=== PATIENT | female | born 1970 | race Caucasian/White ===

== ENCOUNTER → 2017-01-04 | Outpatient (CLI) | payer BC ==
--- NOTE | 2017-01-05 16:42 | MR ---
EXAMINATION TYPE: MR stanfordine/reignoine wo con DATE OF EXAM: 01/04/2017 10:50 AM COMPARISON: 02/04/2015 HISTORY: Glendy malformation/ syrinx CONTRAST: Performed utilizing 0 mL intravenous MultiHance gadolinium contrast. TECHNIQUE: Multiplanar multiecho imaging on a 3.0 Justina magnet is performed through the cervical spin e. FINDINGS: There is a tight foramen magnum. The tonsils are below the level of the foramen magnum by 2 .1 cm. Normal is less than 0.5 cm right tonsillar containing appears to be present. Medullary kinking is not identified. There is a syrinx present which is well visualized of C3-T3. The greatest width's posterior to the C5-C6 level which is approximately 0.32 cm. There is a similar measurement on the c omparison examination. There is a disc bulge at C6-7 with moderate anterior thecal sac compression. This is stable from prio r study. Cord contact may be present. Mild disc bulge is present C5-6 with anterior thecal sac compre ssion. This may have some cord contact. No AP spinal canal stenosis is present. This is unchanged fro m prior study. Minimal disc bulge is present C3-4 and the right paracentral region without cord conta ct. No spinal canal stenosis present. Tiny hyperdensity within the left lobe thyroid is stable. IMPRESSIONS: 1. Chiari malformation with tonsillar caking and sent 2 cm below the foramen magnum. 2. Cord syrinx appears stable from 02/04/2015. 3. Disc bulging greatest at C6-7 but also present at C3-4 and C5-6, stable from prior study. EXAMINATION TYPE: MR kaela/amanda wo con DATE OF EXAM: 01/04/2017 10:50 AM COMPARISON: NONE HISTORY: Glendy malformation/ syrinx CONTRAST: Performed utilizing 0 mL intravenous MultiHance gadolinium contrast. TECHNIQUE: Multiplanar, multiecho imaging on a 3.0 Justina magnet is performed through the thoracic spi ne. Cord syrinx within the upper thoracic spine as discussed during the cervical spine dictation. Syrinx extends to the T4 level The mid and lower thoracic spinal cord maintains normal signal without additional areas suspicious fo r syrinx. T9-10: There is some left paracentral thecal sac compression from disc bulge. No spinal canal stenosi s is evident. No cord contact is evident. This is stable from prior study. Vertebral body alignment is normal. Vertebral body heights are preserved. Disc heights are preserved. Disc hydration levels are preserved. No spinal canal stenosis is evident. IMPRESSIONS: 1. Stable cord syrinx. 2. Mild left paracentral disc bulge T9-T10, stable from prior study.
== END | disposition home or self-care (01) ==
LOC: RADMRIMAIN 09:55
PROVIDERS: ATTEND Internal Medicine
DX: M50.223 Other cervical disc displacement at C6-C7 level (principal); M51.24 Other intervertebral disc displacement, thoracic region
CPT/HCPCS: 72141; 72146

== ENCOUNTER → 2019-01-02 | Outpatient (CLI) | payer BC ==
--- NOTE | 2019-01-02 08:50 | MR ---
EXAMINATION TYPE: MR cspine/tspine wo con DATE OF EXAM: 01/02/2019 COMPARISON: Prior MRI cervical and thoracic spine January 04, 2017. HISTORY: Neck and back pain, stiffness, hx chiari malformation w/syrinx TECHNIQUE: Multiplanar, multisequence imaging of cervical and thoracic spine are performed without co ntrast FINDINGS: C-SPINE: FINDINGS: Sagittal images of the cervical spine redemonstrate Chiari-type I malformation with cerebel lar tonsils extending to superior to mid C3 level roughly 2.2 cm below foramen magnum sagittal image 7. The cervical and upper thoracic spinal cord redemonstrates syrinx beginning at mid C5 level exten ding to inferior T1 level not significantly changed from prior study with slight cord expansion. Bi tebral alignment is stable and straightened. There is persistent mild disc space narrowing C6-C7 lev el. The vertebral body and intravertebral disk heights otherwise are normal. Small posterior disc her niations mildly effacing anterior thecal sac at C3-C4, C5-C6, and C6-C7 levels remain present on sagi ttal images. The bone marrow signal intensity remains within normal limits. Axial images at C2-C3 level remain within normal limits. Axial images at C3-C4 level redemonstrates tiny central disc protrusion mildly effacing anterior thec al sac, bilateral neural foramina are patent. Axial images at C4-C5 level remain within normal limits. Axial images at C5-C6 level shows central disc protrusion effacing anterior thecal sac, bilateral young ral foramina are patent on axial image 27. Axial images at C6-C7 level shows central disc protrusion effacing anterior thecal sac with some inde nting of ventral surface of spinal cord on axial image 20, bilateral neural foramina are patent. No s ignificant change from prior. Axial images at C7-T1 level show syrinx otherwise are felt within normal limits. Stable 5 mm left thyroid T2 hyperintense nodule axial image 6. IMPRESSION: Stable Chiari type I malformation and stable mid cervical syrinx extending to upper thora cic spine. Stable multilevel posterior disc herniations largest noted at C6-C7 level. T-SPINE: Spinal cord redemonstrates additional small syrinx or central canal prominence superior T3 through i nferior T4 level sagittal image 7 unchanged from prior. There is likely contiguous extension through the T2 vertebra no syrinx is less well seen at T2 level. No significant change from prior. Remainder spinal cord shows stable caliber without abnormal signal. Vertebral body heights and alignment remain satisfactory. Tiny posterior disc herniations mildly effacing anterior thecal sac are seen at T5-T6 and T6-C7 level on sagittal image 6 as well as at T8-T9 and T9-T10 level on sagittal image 5. These a re slightly more prominent from prior MRI. There is redemonstration of hemangioma involving T7 verteb ra sagittal image 5 of the left of midline. Review of the axial images confirms contiguous extension of syrinx from the mid cervical spine up to the inferior T4 vertebra. There is redemonstration of multilevel tiny disc herniations in the mid to lower thoracic spine more prominent. No additional disc herniations are evident on axial images. IMPRESSION: Stable syrinx extends to inferior T4 level. Multilevel posterior disc herniations mid to lower thoracic spine as detailed above show slight interval progression from 2017 MRI
== END ==
LOC: RADMRIMAIN 07:03
PROVIDERS: ATTEND Internal Medicine
DX: M50.223 Other cervical disc displacement at C6-C7 level (principal); M51.24 Other intervertebral disc displacement, thoracic region; Q07.00 Arnold-Chiari syndrome without spina bifida or hydrocephalus
CPT/HCPCS: 72141; 72146

== ENCOUNTER 2019-04-04 10:35 | Emergency (ER) | payer BC ==
[2019-04-04 10:39] VITALS: RESP 18
[2019-04-04] MEDS ORDERED: SODIUM CHLORIDE 0.9% 1,000 ML IV STA (11:01)
[2019-04-04] MEDS ORDERED: diphenhydrAMINE 50 MG/ML 1 ML VIAL IVP STA (11:01)
[2019-04-04] MEDS ORDERED: ONDANSETRON 4 MG/2 ML VIAL IVP STA ×2 (11:01→14:44)
--- NOTE | 2019-04-04 11:03 | ED ---
Dizziness HPI - General Chief Complaint: Dizziness Stated Complaint: dizziness Time Seen by Provider: 04/04/19 10:49 Source: patient, RN notes reviewed, old records reviewed Mode of arrival: ambulatory Limitations: no limitations - History of Present Illness Initial Comments: This is a 49-year-old female the ER for evaluation, patient resents today for evaluation regarding vertiginous type symptoms symptoms starting today. No headache. Patient does have significant history of CAD malformation with surgical evaluation. Patient scheduled for surgery this year. Patient has no recent travel history sick contacts no traumas. She is nauseous. Symptoms all began states positional her eyes don't feel like they're appropriate. Patient denies any recent change in medications drugs or alcohol MD Complaint: dizziness, lightheadedness -: hour(s) Timing: gradual onset Description: sense of movement, "room spinning", off-balance, difficulty walking History of Same: No History of Trauma: No Severity: mild Improves With: nothing Worsens With: nothing Associated Symptoms: ataxia, weakness - Related Data Home Medications Medication Instructions Recorded Confirmed Carisoprodol [Soma] 350 mg PO BID 04/12/16 04/04/19 Levothyroxine Sodium [Synthroid] 50 mcg PO DAILY 04/12/16 04/04/19 Cholecalciferol [Vitamin D3 (25 1,000 unit PO DAILY 04/04/19 04/04/19 Mcg = 1000 Iu)] HYDROcodone/APAP 7.5-325MG [[place] 1 tab PO BID PRN 04/04/19 04/04/19 7.5-325] Ubidecarenone [Co Q-10] 100 mg PO DAILY 04/04/19 04/04/19 Allergies Allergy/AdvReac Type Severity Reaction Status Date / Time No Known Allergies Allergy Verified 04/04/19 10:44 Review of Systems ROS Statement: Those systems with pertinent positive or pertinent negative responses have been documented in the HPI. ROS Other: All systems not noted in ROS Statement are negative. Past Medical History Past Medical History: Thyroid Disorder Additional Past Medical History / Comment(s): Chiari malformation History of Any Multi-Drug Resistant Organisms: None Reported Past Surgical History: Orthopedic Surgery, Tonsillectomy Additional Past Surgical History / Comment(s): left elbow fx, arthroscopy left shoulder Past Anesthesia/Blood Transfusion Reactions: No Reported Reaction Past Psychological History: No Psychological Hx Reported Smoking Status: Former smoker Past Alcohol Use History: Occasional Past Drug Use History: None Reported - Past Family History Mother Family Medical History: No Reported History General Exam Limitations: no limitations General appearance: alert, in no apparent distress Head exam: Present: atraumatic, normocephalic, normal inspection Eye exam: Present: normal appearance, PERRL, EOMI. Absent: scleral icterus, conjunctival injection, periorbital swelling ENT exam: Present: normal exam, mucous membranes moist Neck exam: Present: normal inspection. Absent: tenderness, meningismus, lymphadenopathy Respiratory exam: Present: normal lung sounds bilaterally. Absent: respiratory distress, wheezes, rales, rhonchi, stridor Cardiovascular Exam: Present: regular rate, normal rhythm, normal heart sounds. Absent: systolic murmur, diastolic murmur, rubs, gallop, clicks GI/Abdominal exam: Present: soft, normal bowel sounds. Absent: distended, tenderness, guarding, rebound, rigid Extremities exam: Present: normal inspection, full ROM, normal capillary refill. Absent: tenderness, pedal edema, joint swelling, calf tenderness Back exam: Present: normal inspection Neurological exam: Present: alert, oriented X3, CN II-XII intact Psychiatric exam: Present: normal affect, normal mood Skin exam: Present: warm, dry, intact, normal color. Absent: rash Course Vital Signs 04/04/19 04/04/19 04/04/19 10:37 14:00 15:00 Temperature 98.2 F 98.0 F Pulse Rate 91 82 80 Respiratory 18 18 18 Rate Blood Pressure 115/64 103/63 105/63 O2 Sat by Pulse 98 98 97 Oximetry - Reevaluation(s) Reevaluation #1: 04/04/19 15:34 Medical records reviewed Reevaluation #2: 04/04/19 15:34 All to 4 times a day and made to reach patient's neurosurgeon Dr. Kerwin Bush, these are unsuccessful. No return call is an hour Reevaluation #3: 04/04/19 15:34 Patient will be transferred to [facility] for worsening of symptoms EKG Findings - EKG Comments: EKG Findings:: EKG shows normal sinus rhythm rate of 79, RI 166, QRS 110, QTc 495 Medical Decision Making - Medical Decision Making 49 female the ER for evaluation presents today for evaluation regarding vertigo symptoms are unresolved persistent ataxia. Patient be transferred for neurology evaluation - Lab Data Result diagrams: 04/04/19 11:23 04/04/19 11:23 Lab Results 04/04/19 04/04/19 04/04/19 Range/Units 11:23 11:23 11:23 WBC 7.2 (3.8-10.6) k/uL RBC 4.16 (3.80-5.40) m/uL Hgb 12.5 (11.4-16.0) gm/dL Hct 37.6 (34.0-46.0) % MCV 90.2 (80.0-100.0) fL MCH 30.1 (25.0-35.0) pg MCHC 33.4 (31.0-37.0) g/dL RDW 13.9 (11.5-15.5) % Plt Count 222 (150-450) k/uL Neutrophils % 81 % Lymphocytes % 12 % Monocytes % 4 % Eosinophils % 2 % Basophils % 0 % Neutrophils # 5.8 (1.3-7.7) k/uL Lymphocytes # 0.8 L (1.0-4.8) k/uL Monocytes # 0.3 (0-1.0) k/uL Eosinophils # 0.1 (0-0.7) k/uL Basophils # 0.0 (0-0.2) k/uL PT (9.0-12.0) sec INR (<1.2) APTT (22.0-30.0) sec Sodium 138 (137-145) mmol/L Potassium 3.7 (3.5-5.1) mmol/L Chloride 106 (98-107) mmol/L Carbon Dioxide 24 (22-30) mmol/L Anion Gap 8 mmol/L BUN 13 (7-17) mg/dL Creatinine 0.53 (0.52-1.04) mg/dL Est GFR (CKD-EPI)AfAm >90 (>60 ml/min/1.73 sqM) Est GFR (CKD-EPI)NonAf >90 (>60 ml/min/1.73 sqM) Glucose 138 H (74-99) mg/dL Plasma Lactic Acid Rafael 1.4 (0.7-2.0) mmol/L Calcium 8.9 (8.4-10.2) mg/dL Phosphorus 2.6 (2.5-4.5) mg/dL Magnesium 1.8 (1.6-2.3) mg/dL Total Bilirubin 0.4 (0.2-1.3) mg/dL AST 16 (14-36) U/L ALT 24 (9-52) U/L Alkaline Phosphatase 65 (38-126) U/L Creatine Kinase 71 (30-135) U/L Troponin I (0.000-0.034) ng/mL Total Protein 6.6 (6.3-8.2) g/dL Albumin 4.0 (3.5-5.0) g/dL 04/04/19 04/04/19 Range/Units 11:23 11:23 WBC (3.8-10.6) k/uL RBC (3.80-5.40) m/uL Hgb (11.4-16.0) gm/dL Hct (34.0-46.0) % MCV (80.0-100.0) fL MCH (25.0-35.0) pg MCHC (31.0-37.0) g/dL RDW (11.5-15.5) % Plt Count (150-450) k/uL Neutrophils % % Lymphocytes % % Monocytes % % Eosinophils % % Basophils % % Neutrophils # (1.3-7.7) k/uL Lymphocytes # (1.0-4.8) k/uL Monocytes # (0-1.0) k/uL Eosinophils # (0-0.7) k/uL Basophils # (0-0.2) k/uL PT 11.2 (9.0-12.0) sec INR 1.1 (<1.2) APTT 22.5 (22.0-30.0) sec Sodium (137-145) mmol/L Potassium (3.5-5.1) mmol/L Chloride (98-107) mmol/L Carbon Dioxide (22-30) mmol/L Anion Gap mmol/L BUN (7-17) mg/dL Creatinine (0.52-1.04) mg/dL Est GFR (CKD-EPI)AfAm (>60 ml/min/1.73 sqM) Est GFR (CKD-EPI)NonAf (>60 ml/min/1.73 sqM) Glucose (74-99) mg/dL Plasma Lactic Acid Rafael (0.7-2.0) mmol/L Calcium (8.4-10.2) mg/dL Phosphorus (2.5-4.5) mg/dL Magnesium (1.6-2.3) mg/dL Total Bilirubin (0.2-1.3) mg/dL AST (14-36) U/L ALT (9-52) U/L Alkaline Phosphatase (38-126) U/L Creatine Kinase (30-135) U/L Troponin I <0.012 (0.000-0.034) ng/mL Total Protein (6.3-8.2) g/dL Albumin (3.5-5.0) g/dL Disposition Clinical Impression: Vertigo, Ataxia Disposition: OTHER INSTITUTION NOT DEFINED Condition: Fair Is patient prescribed a controlled substance at d/c from ED?: No Referrals: Familia Schultz MD [Primary Care Provider] - 1-2 days - Out of Hospital Transfer - Req. Specs Out of Hospital Transfer - Requested Specifics: Other Emergency Center ([facility]
[2019-04-04 11:38] LABS: Basophils % (A) 0 %; Eosinophils # (A) 0.1 k/uL (0-0.7); Eosinophils % (A) 2 %; HCT 37.6 % (34.0-46.0); HGB 12.5 gm/dL (11.4-16.0); Lymphocytes # (A) 0.8 k/uL (1.0-4.8); Lymphocytes % (A) 12 %; MCH 30.1 pg (25.0-35.0); MCHC 33.4 g/dL (31.0-37.0); MCV 90.2 fL (80.0-100.0); Mean Platelet Volume 8.1; Monocytes # (A) 0.3 k/uL (0-1.0); Monocytes % (A) 4 %; Neutrophils # (A) 5.8 k/uL (1.3-7.7); Neutrophils % (A) 81 %; Platelet Count 222 k/uL (150-450); RBC 4.16 m/uL (3.80-5.40); RDW 13.9 % (11.5-15.5); WBC 7.2 k/uL (3.8-10.6)
[2019-04-04 11:45] LABS: INR 1.1 (<1.2); Partial Thromboplastin Time 22.5 sec (22.0-30.0); Prothrombin Time 11.2 sec (9.0-12.0)
[2019-04-04 11:47] LABS: ALT 24 U/L (9-52); AST 16 U/L (14-36); Alkaline Phosphatase 65 U/L (38-126); Anion Gap 8 mmol/L; Blood Urea Nitrogen 13 mg/dL (7-17); Calcium 8.9 mg/dL (8.4-10.2); Carbon Dioxide 24 mmol/L (22-30); Chloride 106 mmol/L (98-107); Creatine Kinase 71 U/L (30-135); Glucose 138 mg/dL (74-99); Magnesium 1.8 mg/dL (1.6-2.3); Phosphorus 2.6 mg/dL (2.5-4.5); Potassium 3.7 mmol/L (3.5-5.1); Sodium 138 mmol/L (137-145); Total Bilirubin 0.4 mg/dL (0.2-1.3); Total Protein 6.6 g/dL (6.3-8.2)
--- NOTE | 2019-04-04 12:38 | CT ---
EXAMINATION TYPE: CT brain wo con DATE OF EXAM: 04/04/2019 COMPARISON: NONE HISTORY: Dizziness CT DLP: 972.7 mGycm Automated exposure control for dose reduction was used. FINDINGS: Structures are midline. There is no evidence of hydrocephalus. No acute focal lesion, mass effect or midline shift is seen. I do not see evidence of intracranial blood. Visualized portions of the paranasal sinuses and mastoids are clear. The bony calvarium is intact. IMPRESSION: NO ACUTE INTRACRANIAL ABNORMALITY.
[2019-04-04 14:11] VITALS: TEMP 98
--- NOTE | 2019-04-04 14:21 | CT ---
EXAMINATION TYPE: CT angio head neck DATE OF EXAM: 04/04/2019 HISTORY: Dizziness COMPARISON: None. CT DLP: 352.4 mGycm. Automated Exposure Control for Dose Reduction was Utilized. TECHNIQUE: CTA scan of the neck is performed with IV Contrast, patient injected with 50 mL of Isovue 370, axial images are obtained, coronal and sagittal reformatted images are reviewed. Three-D recons tructed images are created on an independent workstation and reviewed. FINDINGS: There are emphysematous changes throughout the lungs. Lungs otherwise clear. There is a mild reversal of the normal cervical lordosis which is replaced by mild kyphosis. There is disc space loss and hypertrophic spondylosis at C5-6 and C6-7. There is mild uncovertebral joint dis ease at these levels. No definite protrusion is seen. There is a normal origin of the great vessels. Both vertebral arteries are codominant. There is no significant calcification at the level of the carotid bulbs. I do not see evidence of a h emodynamically significant stenosis in the proximal carotid arteries. The more distal carotid arterie s on the left are unremarkable. On the right there is artifact in the appearance of occlusion distall y. I believe the computer is mixing and branches of the external carotid into the reconstruction. Exam shows the carotid canal left carotid is of normal caliber. There is some dolichoectasia of the vertebrobasilar system mildly posterior communicating artery is v isualized. The anterior communicating artery is patent. There are 2 anterior cerebral arteries. There is normal arborization of the middle cerebral arteries bilaterally. There is no sizable aneurysm. IMPRESSION: 1. I SEE EVIDENCE OF A HEMODYNAMICALLY SIGNIFICANT STENOSIS IN EITHER CAROTID SYSTEM. 2. NORMAL MRI OF THE [place]. 3. EMPHYSEMATOUS CHANGES WITHIN THE LUNGS. 4. DEGENERATIVE CHANGES WITHIN THE SPINE.
[2019-04-04] MEDS ORDERED: DIAZEPAM 5 MG/ML 2 ML INJ IVP STA (14:55)
[2019-04-04 16:31] VITALS: BP 108/66; PULSE 82
== END 2019-04-04 16:31 | disposition short-term general hospital (02) ==
LOC: EC 10:35
DX: R42 Dizziness and giddiness (principal); R26.2 Difficulty in walking, not elsewhere classified; R27.0 Ataxia, unspecified; R11.0 Nausea; R53.1 Weakness; Q07.00 Arnold-Chiari syndrome without spina bifida or hydrocephalus; E07.9 Disorder of thyroid, unspecified; Z87.891 Personal history of nicotine dependence; Z79.890 Hormone replacement therapy; Z79.899 Other long term (current) drug therapy
CPT/HCPCS: 36415; 93005; 80053; 82550; 83605; 83735; 84100; 84484; 85025; 85610; 85730; 70496; 70450; 70498; 99285; 96374; 96375 ×2; 96376; 96361; J1200; J3360; J2405; Q9967

== ENCOUNTER → 2019-05-13 | Outpatient (CLI) | payer BC ==
--- NOTE | 2019-05-14 13:11 | MR ---
EXAMINATION TYPE: MR brain wo/w con DATE OF EXAM: 05/13/2019 COMPARISON: CT brain April 04, 2019 HISTORY: Chiari syndrome, dizziness, abn gait, cerebellar stroke 6-19 TECHNIQUE: Multiplanar, multisequence images of the brain and brainstem is performed without and with IV contras t, utilizing 7.5 mL intravenous Gadavist . FINDINGS: Diffusion weighted images demonstrate no evidence of a recent infarct or other diffusion ab normality. There is no extra-axial fluid collection or significant white matter signal abnormality. The ventricular system and cisternal spaces are normal in size and appearance. The brain volume is age appropriate. Confirmation of subacute on chronic inferior left cerebellar infarct near axial imag e 6 for reference. Midline structures demonstrate low-lying right-sided cerebellar tonsil sagittal image 11 consistent w ith known Chiari type I malformation causing mass effect on the spinal cord slightly deviated anterio rly and to the left. Left-sided brain herniation is improved after infarct. Post contrast images demonstrate no abnormal enhancement. The dural venous sinuses appear patent. The visualized sinuses are clear and the globes are intact. IMPRESSION: Confirmation of lower left cerebellar subacute on chronic infarct likely accounting for p atient's symptoms of abnormal gait. Chiari type I malformation redemonstrated improved on left side a fter volume loss related to infarct.
--- NOTE | 2019-05-14 13:48 | MR ---
EXAMINATION TYPE: MR cspine/tspine wo con DATE OF EXAM: 05/13/2019 COMPARISON: 01/02/2019 MRI C-spine/T-spine and 01/04/2017. HISTORY: Chiari syndrome, dizziness, abnormal gait TECHNIQUE: Multiplanar, multisequence imaging of the cervical spine and thoracic is performed without intravenous contrast. FINDINGS: The vertebral body heights of the cervical and thoracic spine are maintained. Bone marrow signal is w ithin normal limits other than few T1/T2 hyperintense vertebral body hemangiomas, the largest at T7. 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 This extends from the C5 vertebral level to the T4 vertebral level measuring 11.3 cm in craniocaudal dimension. This measu res up to 3 mm in anterior posterior dimension. This is similar to the prior exam. There appears to be some interval decompression of a Chiari malformation as the cerebellar tonsils ap pear to be located at the level of C3 on the prior exam of 01/02/2019 measuring 2.2 cm from the foramen magnum and currently are seen at the level of C2 extending approximately 1.3 cm from the foramen mag num inferiorly. These are peglike tonsils compatible the patient's known history of Chiari malformati on. There is redemonstration of heterogeneity of the thyroid gland and enlargement with a 5 mm thyroid no dule. C2-C3: Very small central disc osteophyte complex without spinal canal stenosis nor neural foraminal narrowing. C3-C4: There is a very small central disc herniation without spinal canal stenosis nor neural foramin al narrowing. C4-C5: There is a very small posterior central disc osteophyte complex without spinal canal stenosis nor neural foraminal narrowing. C5-C6 there remains a small central disc herniation/protrusion without spinal canal stenosis. Minimal uncovertebral hypertrophy is seen without significant neural foraminal narrowing. C6-C7: There remains a central disc herniation and minimal left uncovertebral hypertrophy creating mi ld spinal canal stenosis without neural foraminal narrowing. T4: Disc desiccation is seen without spinal canal stenosis nor neural foraminal narrowing. T5-T6: The previously seen posterior disc herniation is not well appreciated and there is a left ecce ntric broad-based disc bulge without spinal canal stenosis nor neural foraminal narrowing. T6-T7: Very small left paracentral annular tear. No focal disc herniation as seen on the prior. Left eccentric broad-based disc bulge without spinal canal stenosis nor neural foraminal narrowing. T7-T8: Disc desiccation without spinal canal stenosis nor neural foraminal narrowing. T8-T9: Very tiny left paracentral disc herniation as seen on the prior without spinal canal stenosis nor neural foraminal narrowing. T9-T10: Left eccentric broad-based disc bulge without spinal canal stenosis nor neural foraminal narr owing. T10-T12: Disc desiccation without spinal canal stenosis nor neural foraminal narrowing. There are partially visualized small bilateral layering pleural effusions. IMPRESSION: 1. Continued stability of the long segment syrinx seen from approximately C5-T4 and interval decompre ssion of the degree of cerebellar tonsillar herniation previously measuring 2.2 cm below the foramen magnum and currently measuring only 1.3 cm. Findings are in keeping with the patient's known history of Chiari type I malformation. 2. Mildly advanced degenerative disc disease of the cervical and thoracic spine in comparison to the prior of 01/02/2019 with multiple small disc herniations as detailed above. No spinal canal stenosis th roughout.
== END | disposition home or self-care (01) ==
LOC: RADMRIMAIN 10:25
PROVIDERS: ATTEND Internal Medicine
DX: M50.21 Other cervical disc displacement, high cervical region (principal); M51.24 Other intervertebral disc displacement, thoracic region; M50.30 Other cervical disc degeneration, unspecified cervical region; M51.34 Other intervertebral disc degeneration, thoracic region; I63.9 Cerebral infarction, unspecified; G93.5 Compression of brain
CPT/HCPCS: 70553; 72141; 72146; A9585

== ENCOUNTER → 2019-08-24 | Outpatient (CLI) | payer BC ==
--- NOTE | 2019-08-24 15:03 | MR ---
EXAMINATION TYPE: MR brain wo/w con DATE OF EXAM: 08/24/2019 COMPARISON: MRI brain May 13, 2019 HISTORY: Arnold-Chiari syndrome without spina bifida TECHNIQUE: Multiplanar, multisequence images of the brain and brainstem is performed without and with IV contras t, utilizing 7.5 mL intravenous Gadavist . FINDINGS: Diffusion weighted images demonstrate no evidence of a recent infarct or other diffusion ab normality. There is no worrisome extra-axial fluid collection. The ventricular system and cisternal spaces are normal in size and appearance. The brain volume is age appropriate. There is no occasion al tiny focus of T2 hyperintensity scattered throughout the white matter. Old infarct involving the i nferior medial left cerebellar hemisphere is redemonstrated. Midline structures demonstrate persistent low-lying cerebellar tonsils sagittal image 11 Consistent with known Chiari type I malformation. Mass effect on the spinal cord near cervical medullary junctio n axial image 4 is redemonstrated slightly deviated anteriorly and to the left. Post contrast images demonstrate no abnormal enhancement. The dural venous sinuses appear patent. The visualized sinuses a re clear and the globes are intact. IMPRESSION: Overall stable findings. Old left medial inferior cerebellar infarct and Chiari type I ma lformation redemonstrated.
--- NOTE | 2019-08-24 17:38 | MR ---
MRI CERVICAL SPINE: CLINICAL HISTORY: MR cervical and thoracic spine without contrast HISTORY: Arnold-Chiari syndrome without spina bifida Multiplanar multisequence imaging through the cervical and thoracic spine and correlated to previous exam dated 05/13/2019 The syrinx within the cervical cord shows a stable appearance extending to the upper thoracic cord. Low-lying cerebellar tonsils are peglike and again noted. Degenerative disc changes in the cervical s pine are also stable. Thoracic spine shows stable vertebral body height and alignment. Hemangioma again noted at the T7 and T12, T4 vertebral bodies. Small bilateral pleural effusions again seen. No evident spinal stenosis o r significant foraminal encroachment. No sizable disc herniation. There is multilevel spondylosis wit h some endplate discogenic marrow signal change especially in the midthoracic spine as on prior. Thor acic cord signal is stable. IMPRESSION: Stable exam. Findings compatible with patient's history of Chiari I malformation.
== END | disposition home or self-care (01) ==
LOC: RADMRIMAIN 05:32
PROVIDERS: ATTEND Internal Medicine
DX: Q07.00 Arnold-Chiari syndrome without spina bifida or hydrocephalus (principal); I63.9 Cerebral infarction, unspecified
CPT/HCPCS: 70553; 72141; 72146; A9585

== ENCOUNTER → 2020-09-22 | Outpatient (CLI) | payer BC ==
--- NOTE | 2020-09-22 14:53 | MM ---
Reason for exam: additional evaluation requested from prior study. Last mammogram was performed 7 years and 7 months ago. History: Patient has history of other cancer at age 42 and is nulliparous. Took hormonal contraceptives for 11 years beginning at age 17. Physical Findings: Nurse did not find any significant physical abnormalities on exam. MG Diagnostic Mammo w CAD ADAMA Bilateral CC and MLO view(s) were taken. Prior study comparison: March 05, 2013, bilateral digital screening mammo w/CAD. The breast tissue is heterogeneously dense. This may lower the sensitivity of mammography. Focal asymmetry left upper inner quadrant, middle position. These results were verbally communicated with the patient and result sheet given to the patient on 09/22/20. ASSESSMENT: Probably benign, BI-RAD 3 RECOMMENDATION: Follow-up diagnostic mammogram of the left breast in 6 months.
== END | disposition home or self-care (01) ==
LOC: RADMAMWWP 14:01
PROVIDERS: ATTEND Internal Medicine
DX: R68.89 Other general symptoms and signs (principal)
CPT/HCPCS: 77066

== ENCOUNTER → 2021-02-08 | Outpatient (CLI) | payer BC ==
--- NOTE | 2021-02-09 02:57 | MR ---
EXAMINATION TYPE: MR brain/cspine wo DATE OF EXAM: 02/08/2021 COMPARISON: MR scan of the brain 08/24/2019. MR scan cervical spine 08/22/2019 HISTORY: Past cerebellar stroke and mark malformation, dizziness. Multiplanar multiecho imaging of the brain and cervical spine was performed without contrast. There is increased signal on the T2 images in the inferior left cerebellar hemisphere with an old lar ge infarct. There is no mass effect. There is no midline shift. There is no sign of intracranial hemo rrhage. There is slight elongation of the cerebellar tonsils into the foramen magnum consistent with a mild Chiari malformation. Diffusion images show no evidence of an acute infarct. Corpus callosum ap pears normal. Sella turcica is normal. There is mild enlargement of the fourth ventricle. The lateral ventricles appear normal. The calvarium appears intact. The cervical vertebra have normal alignment. Disc spaces are fairly normal. There is slight narrowing of the C6-7 disc space with small posterior disc bulge at C5-6 and C6-7. There is enlargement of the central spinal canal from C5 to C7 related to a syrinx. This measures up to 3 mm in diameter. The lo wer end of the syrinx is not evaluated. This extends to at least T4 level. Syrinx at the T4 level is small and only approximately 1 mm. There is no cervical spinal stenosis. The posterior elements are intact. There is no compression frac ture. 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 Chiari malformation with elongation of the cerebella r tonsils into the foramen magnum. Mild enlargement and deformity of the fourth ventricle. No change. Mild posterior disc bulging at C5-6 and C6-7 unchanged. No spinal stenosis. Syrinx of the cervical an d thoracic spinal cord unchanged. No spinal stenosis. No change.
== END | disposition home or self-care (01) ==
LOC: RADMRIMAIN 20:24
PROVIDERS: ATTEND Family Medicine
DX: Z09 Encounter for follow-up examination after completed treatment for conditions other than malignant neoplasm (principal); G93.89 Other specified disorders of brain; M50.222 Other cervical disc displacement at C5-C6 level; G95.0 Syringomyelia and syringobulbia; Z86.73 Personal history of transient ischemic attack (TIA), and cerebral infarction without residual deficits
CPT/HCPCS: 70551; 72141

== ENCOUNTER → 2021-02-09 | Outpatient (CLI) | payer BC ==
--- NOTE | 2021-02-11 23:06 | MR ---
EXAMINATION TYPE: MR amanda/isaiah wo con DATE OF EXAM: 02/09/2021 COMPARISON: 08/24/2019 HISTORY: Past cerebellar stroke and mark malformation, dizziness. CONTRAST: No contrast TECHNIQUE: Multiplanar, multiecho imaging on a 3.0 Justina magnet is performed through the thoracic spi ne. Cord syrinx is present beginning at C5 and extending to the T3 level. This previously extended below the T3 level. Vertebral body alignment is normal. Vertebral body heights are preserved. Disc heights are preserved. Mild diffuse disc hydration is present. No spinal canal stenosis is evident. IMPRESSIONS: 1. Cord syrinx extending from the C5 level to the T3 level. This may be diminished in size from the c omparison. No suspicious large disc herniations or spinal canal stenosis is evident. EXAMINATION TYPE: MR jenelle wo con DATE OF EXAM: 02/09/2021 COMPARISON: None HISTORY: Past cerebellar stroke and mark malformation, dizziness. CONTRAST: 0 mL intravenous Gadavist. TECHNIQUE: Multiplanar, multisequence images of the lumbar spine were acquired. FINDINGS: L5-S1: Mild disc bulges anterior thecal sac contact. No spinal canal stenosis or neural foraminal eleanor nosis is present L4-L5: Broad-based disc bulge is mild anterior thecal sac flattening. No AP spinal canal stenosis pre sent. Neural foramen are patent L3-L4: No significant disc bulge or disc herniation. No spinal canal stenosis. No foraminal stenosi s. L2-L3: No significant disc bulge or disc herniation. No spinal canal stenosis. No foraminal stenosi s. L1-L2: No significant disc bulge or disc herniation. No spinal canal stenosis. No foraminal stenosi s. T12-L1: No significant disc bulge or disc herniation. No spinal canal stenosis. No foraminal stenos is. No distal spinal cord syrinx is evident. IMPRESSION: 1. Mild disc bulging at L5-S1 and L4-5 without spinal canal stenosis.
== END | disposition home or self-care (01) ==
LOC: RADMRIMAIN 19:55
PROVIDERS: ATTEND Family Medicine
DX: M51.27 Other intervertebral disc displacement, lumbosacral region (principal)
CPT/HCPCS: 72146; 72148

== ENCOUNTER → 2021-11-26 | Outpatient (CLI) | payer BC ==
--- NOTE | 2021-11-27 10:04 | MM ---
Reason for exam: screening (asymptomatic). Last mammogram was performed 1 year and 2 months ago. History: Patient has history of other cancer at age 42 and is nulliparous. Took hormonal contraceptives for 11 years beginning at age 17. Physical Findings: A clinical breast exam by your physician is recommended on an annual basis and results should be correlated with mammographic findings. MG Screening Mammo w CAD Bilateral CC and MLO view(s) were taken. Prior study comparison: September 22, 2020, bilateral MG diagnostic mammo w CAD ADAMA. March 05, 2013, bilateral digital screening mammo w/CAD. The breast tissue is heterogeneously dense. This may lower the sensitivity of mammography. There is no discrete abnormality. No significant changes when compared with prior studies. ASSESSMENT: Negative, BI-RAD 1 RECOMMENDATION: Routine screening mammogram of both breasts in 1 year.
== END | disposition home or self-care (01) ==
LOC: RADMAMWWP 16:06
PROVIDERS: ATTEND Family Medicine
DX: Z12.31 Encounter for screening mammogram for malignant neoplasm of breast (principal)
CPT/HCPCS: 77067

== ENCOUNTER 2022-07-14 12:22 | Emergency (ER) | payer BC ==
[2022-07-14] MEDS ORDERED: DIPH,PERTUS(ACELL)TETVAC-LF 0.5 ML VIAL IM ONE (15:36)
[2022-07-14] MEDS ORDERED: traMADol 50 MG STARTER PACK 3 TAB BTL PO STA (15:39)
[2022-07-14] MEDS ORDERED: CEPHALEXIN 500MG STARTER PACK 4 CAP BTL PO STA (15:39)
--- NOTE | 2022-07-14 15:39 | ED ---
General Adult HPI - General Chief complaint: Wound/Laceration Stated complaint: Cut finger off, finger injury Time Seen by Provider: 07/14/22 14:26 Source: patient, RN notes reviewed Mode of arrival: ambulatory Limitations: no limitations - History of Present Illness Initial comments: Patient is a pleasant 82-year-old female presenting to the emergency department with concerns with left index finger injury. Patient was cutting hedges and accident and cut her left finger with electric hedger. Patient complains of some discomfort. Incident occurred just prior to arrival. Unclear last tetanus immunization. No other area of injury or concern. Patient does have gloves on - Related Data Home Medications Medication Instructions Recorded Confirmed Levothyroxine Sodium [Synthroid] 50 mcg PO DAILY 04/12/16 04/04/19 carisoprodoL [Soma] 350 mg PO BID 04/12/16 04/04/19 Cholecalciferol [Vitamin D3 (25 1,000 unit PO DAILY 04/04/19 04/04/19 Mcg = 1000 Iu)] HYDROcodone/APAP 7.5-325MG [Watson 1 tab PO BID PRN 04/04/19 04/04/19 7.5-325] Ubidecarenone [Co Q-10] 100 mg PO DAILY 04/04/19 04/04/19 Previous Rx's Medication Instructions Recorded Cephalexin [Keflex] 500 mg PO QID #40 cap 07/14/22 Allergies Allergy/AdvReac Type Severity Reaction Status Date / Time No Known Allergies Allergy Verified 07/14/22 14:18 Review of Systems ROS Statement: Those systems with pertinent positive or pertinent negative responses have been documented in the HPI. ROS Other: All systems not noted in ROS Statement are negative. Constitutional: Denies: fever Eyes: Denies: eye pain ENT: Denies: ear pain Respiratory: Denies: cough Cardiovascular: Denies: chest pain Endocrine: Denies: fatigue Gastrointestinal: Denies: abdominal pain Genitourinary: Denies: urgency Musculoskeletal: Denies: back pain Skin: Reports: as per HPI Past Medical History Past Medical History: CVA/TIA, Thyroid Disorder Additional Past Medical History / Comment(s): Chiari malformation History of Any Multi-Drug Resistant Organisms: None Reported Past Surgical History: Orthopedic Surgery, Tonsillectomy Additional Past Surgical History / Comment(s): left elbow fx, arthroscopy left shoulder Past Anesthesia/Blood Transfusion Reactions: No Reported Reaction Past Psychological History: No Psychological Hx Reported Smoking Status: Never smoker Past Alcohol Use History: Occasional Past Drug Use History: None Reported - Past Family History Mother Family Medical History: No Reported History General Exam Limitations: no limitations General appearance: alert, in no apparent distress Head exam: Present: atraumatic Eye exam: Present: normal appearance Neck exam: Absent: tenderness Respiratory exam: Present: normal lung sounds bilaterally Cardiovascular Exam: Present: regular rate, normal rhythm GI/Abdominal exam: Present: soft. Absent: tenderness Extremities exam: Present: full ROM, other (Left index finger laceration of the distal finger/pad. This is stellate and macerated with significant some cutaneous tissue exposure. Patient has good flexion and extension of the finger. Distal sensation intact. Cap refill less than 2 seconds.) Psychiatric exam: Present: normal affect, normal mood Skin exam: Present: other (Laceration) Course Vital Signs 07/14/22 14:16 Temperature 98 F Pulse Rate 100 Respiratory 20 Rate Blood Pressure 100/64 O2 Sat by Pulse 99 Oximetry - Reevaluation(s) Reevaluation #1: 07/14/22 15:36 Glove cut off for further evaluation prior to suturing Procedures - Laceration Laceration #1 Consent Obtained: verbal consent Indication: laceration Site: hand Size (cm): 3 Description: stellate (Macerated tissue) Anesthetic Used: lidocaine 1% Anesthesia Technique: nerve block (Digital block) Amount (mls): 4 Pre-repair: wound explored, irrigated extensively Type of Sutures: nylon Size of Sutures: 5-0 Number of Sutures: 9 Technique: simple, interrupted Patient Tolerated Procedure: well, no complications Additional Comments: Secondary to missing tissue, unable to get full closure and there is still approximately 25-30% of subcu tissue exposed. Patient is made aware of this and this was discussed prior to suturing. Patient is advised of need for follow-up with orthopedics/hand surgeon beginning of the week. - Nerve Block Consent Obtained: verbal consent Local Anesthetic Used: Lidocaine 1% Side: left Nerve Blocks: digital Patient Tolerated Procedure: well, no complications Medical Decision Making - Medical Decision Making Patient updated on concerns regarding laceration and need for and surgical evaluation and possibly further care. Case was discussed with practitioner julian jeronimo with orthopedics who agrees patient states he Dr. Loredo this week - Radiology Data Interpreted by me: X-ray concerning for small fracture distal phalanx Disposition Clinical Impression: Laceration, Finger fracture Disposition: HOME SELF-CARE Condition: Stable Instructions (If sedation given, give patient instructions): Laceration (ED) Additional Instructions: Please do follow-up with orthopedics beginning of the week, number provided. You will likely need further care for this. Anabiotic perception sent to pharmacy. Please do follow-up with primary care physician as well. Return for increased pain, bleeding, redness, fever, worsening symptoms or other concerns. Prescriptions: Cephalexin [Keflex] 500 mg PO QID #40 cap Is patient prescribed a controlled substance at d/c from ED?: No Referrals: Earl Huffman MD [Primary Care Provider] - 1-2 days Salty Loredo DO [Doctor of Osteopathic Medicine] - 1-2 days Time of Disposition: 16:11
--- NOTE | 2022-07-14 16:03 | XR ---
EXAMINATION TYPE: XR finger LT DATE OF EXAM: 07/14/2022 COMPARISON: NONE HISTORY: Laceration TECHNIQUE: 3 view FINDINGS: There is soft tissue swelling and deformity at the distal phalanx of the left index finger. There is a 4 mm chip fracture of the lateral base of the distal phalanx. No dislocation. No definite foreign body seen. IMPRESSION: Small chip fracture with soft tissue deformity
[2022-07-14 16:51] VITALS: BP 110/64; PULSE 79; RESP 16; TEMP 97.3
== END 2022-07-14 16:51 | disposition home or self-care (01) ==
LOC: EC 12:22
DX: S61.211A Laceration without foreign body of left index finger without damage to nail, initial encounter (principal); E07.9 Disorder of thyroid, unspecified; Z86.73 Personal history of transient ischemic attack (TIA), and cerebral infarction without residual deficits; Z23 Encounter for immunization; Z79.899 Other long term (current) drug therapy; W26.8XXA Contact with other sharp object(s), not elsewhere classified, initial encounter
CPT/HCPCS: 12002; 90471; 90715; 99283

== ENCOUNTER → 2024-07-31 | Outpatient (CLI) | payer BC ==
--- NOTE | 2024-07-31 09:41 | MR ---
EXAMINATION TYPE: MR cspine/tspine/lspine wo con DATE OF EXAM: 07/31/2024 COMPARISON: MRI T-spine and L-spine dated 02/09/2021 and MRI C-spine and T-spine dated 08/24/2019 HISTORY: Arnold-Chiari syndrome with spina bifida, stroke TECHNIQUE: Multiplanar, multisequence imaging of the lumbar spine is performed without IV contrast. FINDINGS: MRI C-spine: Cerebellar tonsils project well below the level of the foramen magnum to at least 8 to 9 mm. There is a stable syrinx extending from C5 through T1. Findings are consistent with a Chiari I malformation. The cervical vertebral segments are normal in height. The prevertebral soft tissues are normal. There is stable mild disc space narrowing at the C5-6 and C6-7 levels consistent with stable mild deg enerative disease. There is no cervical disc herniation or cervical stenosis. There is mild neural fo raminal encroachment at C4-5 and C5-6 levels. The paraspinal soft tissues are unremarkable. MRI T-spine: The thoracic vertebral segments are normal in height and alignment there is no fracture or subluxatio n. There is mild disc space narrowing indicating mild degenerative disease in the lower thoracic spine a pproximately 2 or 3 levels. The thoracic cord is normal in size and signal intensity. There is no thoracic disc herniation. There is no thoracic spinal stenosis. The neuroforamina are patent bilaterally. The paraspinal soft tissues are unremarkable. MRI lumbar spine: The lumbar vertebral segments are normal in height and alignment and there is no fracture or subluxat ion. There is mild loss of signal intensity and circumferential disc bulge of the L4-5 and L5-S1 discs ind icating mild degenerative disease. There is no lumbar disc herniation or spinal stenosis. There is mild facet arthropathy at the L3-4, L4-5 and L5-S1 levels. There is no significant neural foraminal encroachment. The paraspinal soft tissues are unremarkable. IMPRESSION: 1. Chiari I malformation stable compared to previous. 2. Mild neural foraminal stenosis at C4-5 and C5-6 bilaterally. 3. Mild degenerative disc disease lower thoracic spine but no thoracic spinal stenosis or thoracic di sc herniation. 4. Mild stable degenerative disease at L4-5 and L5-S1 level with no lumbar disc herniation or spinal stenosis. [facility], , 07/31/2024 9:39 AM
== END | disposition home or self-care (01) ==
LOC: RADMRIMAIN 07:32
PROVIDERS: ATTEND Family Medicine
DX: Q07.00 Arnold-Chiari syndrome without spina bifida or hydrocephalus
CPT/HCPCS: 72141; 72146; 72148